=== PATIENT | male | born 1945 | race Caucasian/White ===

== ENCOUNTER 2017-02-19 10:54 | Emergency (ER) | payer MEDICARE, OTHER ==
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
[2017-02-19 13:17] VITALS: BP 119/74
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
== END 2017-02-19 13:10 | disposition home or self-care (01) ==
LOC: UCEAST 10:54
DX: S22.31XA Fracture of one rib, right side, initial encounter for closed fracture (principal); S30.1XXA Contusion of abdominal wall, initial encounter; S43.401A Unspecified sprain of right shoulder joint, initial encounter; V19.3XXA Pedal cyclist (driver) (passenger) injured in unspecified nontraffic accident, initial encounter; Y92.488 Other paved roadways as the place of occurrence of the external cause; Y93.55 Activity, bike riding; Y99.9 Unspecified external cause status
CPT/HCPCS: 74176; 99212; G0463

== ENCOUNTER 2018-09-05 10:06 | Emergency (ER) | payer MEDICARE, OTHER ==
[2018-09-05 12:11] VITALS: BP 134/87
--- NOTE | 2018-09-05 13:27 | UC ---
Eye Complaint HPI - HPI Summary HPI Summary: 3 days of bilateral eye irritation, redness and tearing. Right eye worse than left eye. Has had URI symptoms for about a week which are improving. Denies any visual disturbance, headache, nausea. No foreign body sensation. Does not wear contact lenses. - History of Current Complaint Chief Complaint: UCEye Stated Complaint: EYE COMPLAINT Time Seen by Provider: 09/05/18 12:12 Hx Obtained From: Patient Onset/Duration: Gradual Onset, Lasting Days, Still Present Timing: Constant Severity Initially: Moderate Severity Currently: Moderate Pain Intensity: 3 Pain Scale Used: 0-10 Numeric Location of Injury: Conjunctiva Aggravating Factor(s): Nothing Alleviating Factor(s): Nothing Associated Signs And Symptoms: Positive: Drainage (Clear). Negative: Photophobia, Vision Impairment Bilateral, Fever - Allergies/Home Medications Allergies/Adverse Reactions: Allergies Allergy/AdvReac Type Severity Reaction Status Date / Time No Known Allergies Allergy Verified 09/05/18 12:12 PMH/Surg Hx/FS Hx/Imm Hx Previously Healthy: Yes - Surgical History Surgical History: Yes Surgery Procedure, Year, and Place: KNEE SURGERY FOR STEVEN SCHLATTER'S, CHOLECYSTECTOMY, VERICOCELE, COLONOSCOPY, VASECTOMY,extensor tendon and ulna - Family History Known Family History: Positive: Non-Contributory Negative: Blood Disorder - Social History Alcohol Use: Daily Substance Use Type: None Smoking Status (MU): Never Smoked Tobacco Review of Systems All Other Systems Reviewed And Are Negative: Yes Constitutional: Positive: Negative Eyes: Positive: Drainage, Eye Redness. Negative: Blurred Vision, Photophobia Respiratory: Positive: Cough Cardiovascular: Positive: Negative Gastrointestinal: Positive: Negative Neurological: Positive: Negative Physical Exam Triage Information Reviewed: Yes Appearance: Well-Appearing, No Pain Distress, Well-Nourished Vital Signs: Initial Vital Signs Temp 98 F 09/05/18 12:08 Pulse 87 09/05/18 12:08 Resp 18 09/05/18 12:08 BP 134/87 09/05/18 12:08 Pulse Ox 100 09/05/18 12:08 Vital Signs Reviewed: Yes Eyes: Positive: Conjunctiva Inflamed - RIGHT > LEFT, Discharge - CLEAR DRAINAGE RIGHT EYE, Other: - PERRL, EOMI ENT: Positive: Hearing grossly normal Neck: Positive: Supple Respiratory: Positive: No respiratory distress, No accessory muscle use Cardiovascular: Positive: Pulses Normal Abdomen Description: Positive: Soft Musculoskeletal: Positive: No Edema Neurological: Positive: Alert Psychological: Positive: Age Appropriate Behavior Skin: Negative: Rashes Eye Complaint Course/Dx - Differential Dx/Diagnosis Provider Diagnosis: Bilateral conjunctivitis Discharge - Sign-Out/Discharge Documenting (check all that apply): Patient Departure All imaging exams completed and their final reports reviewed: No Studies - Discharge Plan Condition: Stable Disposition: HOME Prescriptions: Ciprofloxacin 0.3% OPTH.SCOOBY* [Cipro 0.3% Opth*] 1 drop BOTH EYES Q4H #1 btl Patient Education Materials: Conjunctivitis (ED) Referrals: Daljit Luna MD [Primary Care Provider] - If Needed - Billing Disposition and Condition Condition: STABLE Disposition: Home
== END 2018-09-05 12:47 | disposition home or self-care (01) ==
LOC: UCEAST 10:06
DX: H10.9 Unspecified conjunctivitis (principal)
CPT/HCPCS: 99212; G0463

== ENCOUNTER 2018-11-05 10:42 | Day surgery (SDC) | payer MEDICARE ==
[~2018-11-05 10:42] MED LIST: Acetaminophen TAB* 325 MG PO PRN; Buffered Lidocaine 1% SYRIN* 1 ML/SYRINGE INTRADERM ONE
[2018-11-05] MEDS ORDERED: Midazolam* 1 MG/ML 2 ML VIAL (2 MG) ONE (12:22)
--- NOTE | 2018-11-05 13:13 | OP ---
OPERATIVE NOTE: DATE OF OPERATION: 11/05/18 DATE OF : 47 SURGEON: Erlin Crowder M.D. PREOPERATIVE DIAGNOSIS: Cataract, right eye. POSTOPERATIVE DIAGNOSIS: Cataract, right eye. OPERATIVE PROCEDURE: Extracapsular cataract extraction with intraocular lens implant right eye. PROCEDURE: The patient was brought to the operating room after being given 1/2% Alcaine with epineph rine drops in the preoperative area. The eye was prepped and draped in the usual sterile fashion. S terile drape and eyelid speculum were placed. Again, topical 1/2% Alcaine with epinephrine was given . A paracentesis incision was made at the 9 o'clock position with the No.75 blade. Clear cornea inc ision 2.2 x 2.2-mm was created at the 12 o'clock position starting at the anterior limbus using the 2 .2-mm keratome. The anterior chamber was irrigated with 0.4 mL of 1% non-preservative intracameral l idocaine and filled with DisCoVisc. A capsulorrhexis was completed using the cystotome and the Utrat a forceps. Hydrodissection was performed with balanced salt solution. The lens nucleus was removed w ith the Phacoemulsification handpiece without incident. Cortex was removed with the irrigation-aspir ation handpiece. The capsular bag was re-inflated using DisCoVisc and an [id number] implant was inser odalys with the shooter. The irrigation-aspiration handpiece was used to remove all residual DisCoVisc. The eye was refilled with balanced salt solution and the wound checked and found to be watertight. Topical Maxitrol drops were given. [id number]/[facility] #: [id number]
[2018-11-05 13:15] VITALS: BP 141/91
[2018-11-05] MEDS ORDERED: Lidocaine 1%* 5 ML VIAL ONE (13:37)
[2018-11-05] MEDS ORDERED: Lidocaine 2% EPI 1:200000 MPF*10-20 ML VIAL ONE (13:37)
[2018-11-05] MEDS ORDERED: Povidone Iodine 5% OPTH* 30 ML BTL ONE (13:37)
[2018-11-05] MEDS ORDERED: Ketorolac 0.5% OPHTH (NF) 0.5 % 5 ML BTL ONE (13:37)
[2018-11-05] MEDS ORDERED: Cyclopentolate 1% OPTH.SOL* 2 ML BTL ONE (13:37)
[2018-11-05] MEDS ORDERED: Proparacaine 0.5% OPHTH.SOL* 15 ML BTL ONE (13:37)
[2018-11-05] MEDS ORDERED: Neomycin/Polymy/Dex OPTH.SUSP* MAXITROL 0.1% 5 ML ONE (13:37)
[2018-11-05] MEDS ORDERED: acetaZOLAMIDE TAB* 250 MG ONE (13:37)
== END 2018-11-05 13:10 | disposition home or self-care (01) ==
LOC: OREAST 10:42
PROVIDERS: ATTEND Specialist
DX: H25.811 Combined forms of age-related cataract, right eye (principal); H35.3131 Nonexudative age-related macular degeneration, bilateral, early dry stage; H40.013 Open angle with borderline findings, low risk, bilateral; H43.813 Vitreous degeneration, bilateral; H33.193 Other retinoschisis and retinal cysts, bilateral; K21.9 Gastro-esophageal reflux disease without esophagitis; M19.90 Unspecified osteoarthritis, unspecified site
CPT/HCPCS: A9270-GY; J2250; V2632

== ENCOUNTER 2019-01-31 09:59 | Emergency (ER) | payer MEDICARE ==
--- NOTE | 2019-01-31 11:25 | ED ---
Lower Extremity - HPI Summary HPI Summary: This pt is a 73 y/o male presenting to [facility] c/o right foot pain today after moving a flower pot. Pt reports he was moving a large flower pot when he stepped on his right foot and it "gave away." Denies trauma to his right foot or twisting his ankle. Since then he notes he has been unable to bear weight. However, he states he has had pain on the bottom of his right foot for the past 1 week. PMHx significant for ganglion on dorsal aspect of right foot 1 year ago. - History of Current Complaint Chief Complaint: EDExtremityLower Stated Complaint: FOOT PAIN PER PT Time Seen by Provider: 01/31/19 11:07 Hx Obtained From: Patient Mechanism Of Injury: Other - no known trauma Onset of Pain: Days Onset/Duration: Days Severity Currently: None Pain Intensity: 0 Pain Scale Used: 0-10 Numeric Timing: Lasting Days Location: Is Discrete @ - right foot Associated Signs And Symptoms: Positive: Negative Aggravating Factor(s): Weight Bearing Alleviating Factor(s): Nothing Able to Bear Weight: No - Allergies/Home Medications Allergies/Adverse Reactions: Allergies Allergy/AdvReac Type Severity Reaction Status Date / Time No Known Allergies Allergy Verified 01/31/19 10:06 PMH/Surg Hx/FS Hx/Imm Hx Cardiovascular History: Denies: Hx Pacemaker/ICD GI History: Reports: Hx Gastroesophageal Reflux Disease - ON MEDICATION FOR, Hx Hiatal Hernia Musculoskeletal History: Reports: Hx Arthritis - RIGHT SHOULDER-PAIN COMES AND GOES Sensory History: Reports: Hx Cataracts - BILATERAL, Hx Contacts or Glasses - GLASSES Denies: Hx Hearing Aid Opthamlomology History: Reports: Hx Cataracts - BILATERAL, Hx Contacts or Glasses - GLASSES - Surgical History Surgery Procedure, Year, and Place: KNEE SURGERY FOR STEVEN SCHLATTER'S, CHOLECYSTECTOMY, VARICOCELE, COLONOSCOPY, VASECTOMY,extensor tendon and ulna REPAIR Hx Anesthesia Reactions: No Infectious Disease History: No Infectious Disease History: Denies: Traveled Outside the [place] in Last 30 Days - Family History Known Family History: Negative: Blood Disorder - Social History Alcohol Use: Weekly Alcohol Amount: 5-6 DRINKS WEEKLY Substance Use Type: Reports: None Smoking Status (MU): Never Smoked Tobacco Have You Smoked in the Last Year: No Review of Systems Negative: Fever Cardiovascular: Negative Respiratory: Negative Gastrointestinal: Negative Musculoskeletal: Other - POS: right foot pain All Other Systems Reviewed And Are Negative: Yes Physical Exam - Summary Physical Exam Summary: VITAL SIGNS: Reviewed. GENERAL: Patient is a well-developed and nourished male who is lying comfortable in the stretcher. Patient is not in any acute respiratory distress. HEAD AND FACE: No signs of trauma. No ecchymosis, hematomas or skull depressions. No sinus tenderness. EYES: PERRLA, EOMI x 2, No injected conjunctiva, no nystagmus. EARS: Hearing grossly intact. Ear canals and tympanic membranes are within normal limits. MOUTH: Oropharynx within normal limits. NECK: Supple, trachea is midline, no adenopathy, no JVD, no carotid bruit, no c- spine tenderness, neck with full ROM. CHEST: Symmetric, no tenderness at palpation LUNGS: Clear to auscultation bilaterally. No wheezing or crackles. CVS: Regular rate and rhythm, S1 and S2 present, no murmurs or gallops appreciated. ABDOMEN: Soft, non-tender. No signs of distention. No rebound no guarding, and no masses palpated. Bowel sounds are normal. EXTREMITIES: RLE: tenderness in lateral aspect of the right foot, no swelling, no deformity. NEURO: Alert and oriented x 3. No acute neurological deficits. Speech is normal and follows commands. SKIN: Dry and warm Triage Information Reviewed: Yes Vital Signs On Initial Exam: Initial Vitals Temp Pulse Resp BP Pulse Ox 97.8 F 72 14 153/99 95 01/31/19 10:02 01/31/19 10:02 01/31/19 10:02 01/31/19 10:02 01/31/19 10:02 Vital Signs Reviewed: Yes Diagnostics - Vital Signs Vital Signs Temp Pulse Resp BP Pulse Ox 01/31/19 10:02 97.8 F 72 14 153/99 95 - Laboratory Lab Statement: Any lab studies that have been ordered have been reviewed, and results considered in the medical decision making process. - Radiology Right foot XR Radiology Interpretation Completed By: Radiologist Summary of Radiographic Findings: IMPRESSION: Normal radiograph of the right foot. Dr. Duran has reviewed this report. Re-Evaluation - Re-Evaluation First Eval Re-Evaluation Time: 12:47 Comment: Reviewed XR results with the pt. He will be discharged home. Lower Extremity Course/Dx - Course Assessment/Plan: This pt is a 73 y/o male presenting to [facility] c/o right foot pain today after moving a flower pot. Pt reports he was moving a large flower pot when he stepped on his right foot and it "gave away." Denies trauma to his right foot or twisting his ankle. Since then he notes he has been unable to bear weight. However, he states he has had pain on the bottom of his right foot for the past 1 week. PMHx significant for ganglion on dorsal aspect of right foot 1 year ago. X-ray impression of the right foot: Normal radiograph of the right foot. Patient reports that he has history of a ganglion cyst in the area which was irritated and caused pain for a couple months. He reports that the symptoms are similar as when he had this ganglion cyst inflammation. In the physical exam I am unable to palpate any cysts however the patient is right- handed. Therefore the patient was given Toradol for the pain and the need to follow-up with orthopedics. Patient understands and agrees. - Diagnoses Provider Diagnoses: Foot pain Discharge - Sign-Out/Discharge Documenting (check all that apply): Patient Departure - Discharge home Patient Received Moderate/Deep Sedation with Procedure: No - Discharge Plan Condition: Stable Disposition: HOME Patient Education Materials: Arthralgia (ED) Referrals: Richa Boss MD [Primary Care Provider] - Additional Instructions: FOLLOW UP WITH YOUR PRIMARY CARE PROVIDER IN 2-3 DAYS. RETURN TO THE EMERGENCY DEPARTMENT FOR ANY WORSENING OR NEW SYMPTOMS. - Billing Disposition and Condition Condition: STABLE Disposition: Home - Attestation Statements Document Initiated by Abdelrahman: Yes Documenting Briandaibe: Ninfa Grant Provider For Whom Abdelrahman is Documenting (Include Credential): Lex Duran MD Scribe Attestation: Ninfa Bangura scribed for Lex Duran MD on 02/01/19 at 1830. Scribe Documentation Reviewed: Yes Provider Attestation: The documentation as recorded by the Ninfa duenas accurately reflects the service I personally performed and the decisions made by me, Lex Duran MD Status of Scribe Document: Viewed
[2019-01-31] MEDS ORDERED: Ketorolac INJ* 60 MG/2 ML VIAL IM ONE (12:35)
[2019-01-31 12:52] VITALS: BP 138/85
== END 2019-01-31 12:52 | disposition home or self-care (01) ==
LOC: ED 09:59
DX: M79.671 Pain in right foot (principal); K21.9 Gastro-esophageal reflux disease without esophagitis; K44.9 Diaphragmatic hernia without obstruction or gangrene; Z79.899 Other long term (current) drug therapy
CPT/HCPCS: 96372; 99282; J1885

== ENCOUNTER 2019-08-04 19:04 | Emergency (ER) | payer MEDICARE ==
--- NOTE | 2019-08-05 01:46 | ED ---
Dizziness - HPI Summary HPI Summary: Patient is a 73 y/o M w/ Hx of vertigo who presents to [facility] via EMS with chief complaint of dizziness. He states that he was home, took a shower, dressed and went down into dining room when Sx began to onset. He went to kitchen and sat down. Dizziness is characterized as a room-spinning sensation. He states that he had N/V as well. notes the patient was pale in appearance and diaphoretic. The called EMS. Sx had resolved upon EMS arrival. He notes some NEWMAN and decreased appetite. No recurrence of Sx noted. He notes Hx of vertigo and states that this episode was more severe than previous episodes. states that during the past two weeks, the patient had 4-5 episodes of "feeling wobbly", which is described as a different sensation compared to today' s episode. No difficulty speaking noted. On assessment technician, nothing is noted to aggravate/alleviate Sx. He denies Hx of HTN, diabetes, stroke, kidney disease, cardiac disease. Home medications and allergies are reviewed. - History Of Current Complaint Chief Complaint: EDDizziness Stated Complaint: VERTIGO PER EMS Time Seen by Provider: 08/05/19 01:38 Hx Obtained From: Patient Onset/Duration: Resolved Timing: Intermittent Episode Lasting Character: Room Spinning, Dizzy Aggravating Factor(s): Nothing Alleviating Factor(s): Nothing Associated Signs And Symptoms: Positive: Nausea, Vomiting, Diaphoresis, Other: - positive - pale-appearing, NEWMAN, decreased appetite. Negative: Slurred Speech - Allergies/Home Medications Allergies/Adverse Reactions: Allergies Allergy/AdvReac Type Severity Reaction Status Date / Time No Known Allergies Allergy Verified 01/31/19 10:06 PMH/Surg Hx/FS Hx/Imm Hx Cardiovascular History: Denies: Hx Pacemaker/ICD GI History: Reports: Hx Gastroesophageal Reflux Disease - ON MEDICATION FOR, Hx Hiatal Hernia Musculoskeletal History: Reports: Hx Arthritis - RIGHT SHOULDER-PAIN COMES AND GOES Sensory History: Reports: Hx Cataracts - BILATERAL, Hx Contacts or Glasses - GLASSES Denies: Hx Hearing Aid Opthamlomology History: Reports: Hx Cataracts - BILATERAL, Hx Contacts or Glasses - GLASSES - Surgical History Surgery Procedure, Year, and Place: KNEE SURGERY FOR STEVEN SCHLATTER'S, CHOLECYSTECTOMY, VARICOCELE, COLONOSCOPY, VASECTOMY,extensor tendon and ulna REPAIR Hx Anesthesia Reactions: No Infectious Disease History: No Infectious Disease History: Denies: Traveled Outside the [place] in Last 30 Days - Family History Known Family History: Negative: Blood Disorder - Social History Alcohol Use: Weekly Alcohol Amount: 5-6 DRINKS WEEKLY Substance Use Type: Reports: None Smoking Status (MU): Never Smoked Tobacco Have You Smoked in the Last Year: No Review of Systems Positive: Skin Diaphoresis Gastrointestinal: Other - positive - decreased appetite Positive: Vomiting, Nausea Skin: Other - positive - pale appearing Neurological: Other - positive - dizziness Positive: Headache. Negative: Slurred Speech All Other Systems Reviewed And Are Negative: Yes Physical Exam - Summary Physical Exam Summary: Appearance: Well-appearing, Well-nourished, lying in bed comfortably Skin: Warm, dry, no obvious rash Eyes: sclera anicteric, no conjunctival pallor ENT: mucous membranes moist, pharynx appears normal Neck: Supple, nontender Respiratory: Clear to auscultation, no signs of respiratory distress Cardiovascular: Normal S1, S2. No murmurs. Normal distal pulses in tibial and radial bilaterally. Abdomen: Soft, nontender, normal active bowel sounds present Musculoskeletal: Normal, Strength/ROM Intact Neurological: A&Ox3, awake and alert, mentation is normal, speech is fluent and appropriate Psychiatric: affect is normal, does not appear anxious or depressed Triage Information Reviewed: Yes Vital Signs On Initial Exam: Initial Vitals Temp Pulse Resp BP Pulse Ox 96.4 F 74 16 133/88 94 08/04/19 19:08 08/04/19 19:08 08/04/19 19:08 08/04/19 19:08 08/04/19 19:08 Vital Signs Reviewed: Yes Procedures - Sedation Patient Received Moderate/Deep Sedation with Procedure: No Diagnostics - Vital Signs Vital Signs Temp Pulse Resp BP Pulse Ox 08/05/19 01:14 57 14 95 08/05/19 01:12 60 22 149/98 96 08/04/19 22:54 98.0 F 68 18 147/95 94 08/04/19 19:08 96.4 F 74 16 133/88 94 - Laboratory Lab Statement: Any lab studies that have been ordered have been reviewed, and results considered in the medical decision making process. - EKG 1917 Cardiac Rate: NL - rate of 70 BPM EKG Rhythm: Sinus Rhythm Summary of EKG Findings: EKG showed NSR with rate of 70 BPM, old inferior infarct. ED physician has reviewed and interpreted this EKG. Dizzy Course/Dx - Course Course Of Treatment: Patient is a 73 y/o M w/ Hx of vertigo who presents to [facility] via EMS with chief complaint of dizziness. He states that he was home, took a shower, dressed and went down into dining room when Sx began to onset. He went to kitchen and sat down. Dizziness is characterized as a room-spinning sensation. He states that he had N/V as well. notes the patient was pale in appearance and diaphoretic. The called EMS. Sx had resolved upon EMS arrival. He notes some NEWMAN and decreased appetite. No recurrence of Sx noted. He notes Hx of vertigo and states that this episode was more severe than previous episodes. states that during the past two weeks, the patient had 4-5 episodes of "feeling wobbly", which is described as a different sensation compared to today's episode. No difficulty speaking noted. Physical exam is unremarkable. EKG showed NSR with rate of 70 BPM, old inferior infarct. History and exam are consistent with peripheral vertigo, I do not have any suspicion that this is of central origin. He was discharged to home with prescription for meclizine. - Diagnoses Provider Diagnoses: Vertigo Discharge ED - Sign-Out/Discharge Documenting (check all that apply): Patient Departure - discharge - Discharge Plan Condition: Good Disposition: HOME Prescriptions: Meclizine TAB* [Antivert 12.5 TAB*] 25 mg PO TID PRN #15 tab PRN Reason: Dizziness Patient Education Materials: Vertigo (ED) Referrals: Richa Boss MD [Primary Care Provider] - If Needed - Billing Disposition and Condition Condition: GOOD Disposition: Home - Attestation Statements Document Initiated by Scribe: Yes Documenting Scribe: NIRAJ SHARMA Provider For Whom Abdelrahman is Documenting (Include Credential): RIDDHI MILES MD Scribe Attestation: NIRAJ Bangura, scribed for RIDDHI MILES MD on 08/06/19 at 0540. Scribe Documentation Reviewed: Yes Provider Attestation: The documentation as recorded by the NIRAJ duenas accurately reflects the service I personally performed and the decisions made by me, RIDDHI MILES MD Status of Scribe Document: Viewed
[2019-08-05 02:10] VITALS: BP 147/95
== END 2019-08-05 02:12 | disposition home or self-care (01) ==
LOC: ED 19:04
DX: R42 Dizziness and giddiness (principal); R51 Headache; R11.2 Nausea with vomiting, unspecified; R61 Generalized hyperhidrosis; K21.9 Gastro-esophageal reflux disease without esophagitis
CPT/HCPCS: 93005; 99283